=== PATIENT | male | born 1965 | race Caucasian/White ===

== ENCOUNTER 2016-10-12 06:22 | Day surgery (SDC) | payer BC ==
[~2016-10-12 06:22] MED LIST: Dextrose 5%-0.45% NaCl 1,000 ML IV SCH; Midazolam 1 MG/ML 2 ML SDV ONE; Sodium Chloride 0.9% 10 ML Syringe FLUSH PRN; fentaNYL 100 MCG/2 ML SDV ONE
[2016-10-12] MEDS ORDERED: fentaNYL 100 MCG/2 ML SDV IV ONE ×2 (07:36→17:04)
[2016-10-12] MEDS ORDERED: Midazolam 1 MG/ML 2 ML SDV IV ONE ×7 (07:37→17:04)
[2016-10-12 09:44] VITALS: BP 132/85
--- NOTE | 2016-10-12 10:13 | OR ---
DATE: 10/12/2016 PROCEDURE: Total colonoscopy. INSTRUMENT USED: CF-H180AL Olympus video colonoscope. Olympus disposable distal attachment. PREMEDICATIONS: Fentanyl 100 mcg intravenous, Versed 4 mg intravenous. The procedure was done under pulse oximetry, BP recording, and nuclear monitoring technician. INDICATION: Screening colonoscopic examination is done for detection of any polypoid lesions and removal, endoscopic hemostasis therapy if needed. Initial rectal exam was unremarkable. Rigid anoscopy was normal. DESCRIPTION OF PROCEDURE: The colonoscope was passed with ease up to the ileocecal area, photographs were taken of the normal-appearing cecum, identified by landmarks of appendiceal orifice and double-bulged ileocecal folds. No bleeding was noted from any of the visualized areas at the commencement of the examination. No stricture. No vascular ectasia. No large isolated ulcerations seen. No evidence of diffuse inflammatory bowel disease in the form of friability, contact bleeding, or ulcerations. No polyp or tumor mass identified. Probing the proximal sides of folds and flexures, using adequate distention and clearing up the stool material, withdrawal of the scope was made, cecum to rectum time over 6 minutes. No bleeding was noted from any of the visualized areas at the completion of examination. IMPRESSION: Normal study. The patient tolerated the procedure well. [facility] /[id number]
== END 2016-10-12 09:55 | disposition home or self-care (01) ==
LOC: DL.ENDO 06:22
PROVIDERS: ATTEND Internal Medicine Gastroenterology
DX: Z12.11 Encounter for screening for malignant neoplasm of colon (principal); I10 Essential (primary) hypertension; E78.5 Hyperlipidemia, unspecified; K21.9 Gastro-esophageal reflux disease without esophagitis; E66.09 Other obesity due to excess calories; Z79.899 Other long term (current) drug therapy
CPT/HCPCS: 45378; J2250; J3010; J7042

== ENCOUNTER 2016-10-23 03:42 | Emergency (ER) | payer BC ==
[2016-10-23] MEDS ORDERED: Ondansetron 4 MG/2 ML SDV IV ONE (04:04)
[2016-10-23] MEDS ORDERED: HYDROmorphone 1 MG/ML Syringe IVPUSH ONE ×2 (04:04→05:25)
[2016-10-23] MEDS ORDERED: Cyclobenzaprine 10 MG Tab PO ONE (04:25)
[2016-10-23] MEDS ORDERED: Sodium Chloride 0.9% 1,000 ML IV ONE (04:26)
--- NOTE | 2016-10-23 05:30 | EDM.PDOC ---
ED HPI LOWER BACK PAIN/INJURY - General Chief Complaint: Back Pain or Injury Stated Complaint: BACK INJURY Time Seen by Provider: 10/23/16 03:45 Source of Information: Reports: Patient History Limitations: Reports: No limitations - History of Present Illness INITIAL COMMENTS - FREE TEXT/NARRATIVE: c/o severe low back pain, unable to manage pain tonight with ibuprofen. 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 No radiation of pain, no numbness or tingling No bowel or bladder problems. Denies prior back trouble. Location: Reports: lower Quality: Reports: Throbbing Place of Occurrence: other Improves with: Reports: Immobilization Worsens with: Reports: Movement Context: Reports: bending Treatments WARRANT SERVER: Reports: Acetaminophen, NSAIDS - Related Data Allergies/ADRs: Allergies Allergy/AdvReac Type Severity Reaction Status Date / Time lisinopril Allergy Cough Verified 10/23/16 03:52 metoprolol [From Toprol XL] Allergy Lethargy Verified 10/23/16 03:52 Home Meds: Home Meds amLODIPine [Norvasc] 10 mg PO DAILY 10/11/16 [History] Past Medical History - Past Health History Medical/Surgical History: Denies Medical/Surgical History Cardiovascular History: Reports: Hypertension Neurological History: Reports: None Psychiatric History: Reports: None Hematologic History: Reports: None Oncologic (Cancer) History: Reports: None Dermatologic History: Reports: None - Infectious Disease History Infectious Disease History: Reports: Chicken pox, Shingles Social & Family History - Family History Family Medical History: Noncontributory - Tobacco Use Smoking Status *Q: Never Smoker Years of Tobacco use: 6 Used Tobacco, but Quit: Yes Month Tobacco Last Used: 07/02/2006 Second Hand Smoke Exposure: No - Alcohol Use Days Per Week of Alcohol Use: 7 Number of Drinks Per Day: 2 Total Drinks Per Week: 14 - Recreational Drug Use Recreational Drug Use: No Drug Use in Last 12 Months: No ED ROS GENERAL - Review of Systems Review Of Systems: See Below Constitutional: Reports: no symptoms GI/Abdominal: Reports: No symptoms : Reports: no symptoms Musculoskeletal: Reports: back pain Skin: Reports: no symptoms Neurological: Reports: No Symptoms ED EXAM,LOWER BACK PAIN/INJURY - Physical Exam Exam: See Below Exam Limited By: No limitations General Appearance: alert, moderate distress, obese Ears: normal external exam Nose: normal inspection Throat/Mouth: Normal inspection Head: atraumatic Neck: normal inspection Respiratory/Chest: no respiratory distress, lungs clear Cardiovascular: normal peripheral pulses, regular rate, rhythm Back Exam: paraspinal tenderness (bilateral. No SI pain), vertebral tenderness ( low lumbar) Extremities: normal inspection, normal range of motion Neurological: alert, normal dorsiflexion, normal plantar flexion, oriented x 3, straight leg raise (L), straight leg raise (R), difficulty walking (related to pain). No: normal gait, saddle anesthesia Psychiatric: normal affect, normal mood Skin Exam: Warm, Dry, Intact, Normal color Course - Vital Signs Last Recorded V/S: Last Vital Signs Temp 97.6 F 10/23/16 05:55 Pulse 70 10/23/16 05:55 Resp 18 10/23/16 05:55 BP 139/93 H 10/23/16 05:55 Pulse Ox 97 10/23/16 05:55 - Orders/Labs/Meds Meds: Medications Discontinued Medications Generic Name Dose Route Start Last Admin Trade Name Ralph PRN Reason Stop Dose Admin Cyclobenzaprine HCl 10 mg 10/23/16 04:25 10/23/16 04:30 Flexeril PO 10/23/16 04:26 10 mg ONETIME ONE Administration Hydromorphone HCl 1 mg 10/23/16 04:04 10/23/16 04:17 Dilaudid IVPUSH 10/23/16 04:05 1 mg ONETIME ONE Administration Hydromorphone HCl 1 mg 10/23/16 05:25 10/23/16 05:27 Dilaudid IVPUSH 10/23/16 05:26 1 mg ONETIME ONE Administration Sodium Chloride 1,000 mls @ 50 mls/hr 10/23/16 04:26 10/23/16 04:16 Normal Saline IV 10/24/16 00:25 50 mls/hr .BOLUS ONE Administration Ondansetron HCl 4 mg 10/23/16 04:04 10/23/16 04:16 Zofran IV 10/23/16 04:05 4 mg ONETIME ONE Administration Orphenadrine Citrate 60 mg 10/23/16 04:07 Norflex IV 10/23/16 04:08 ONETIME ONE - Radiology Interpretation Free Text/Narrative:: lumbar CT negative - Re-Assessments/Exams Free Text/Narrative Re-Assessment/Exam: 10/25/16 03:55 Pain improved following medication. Findings of CT discussed with patient and . Home, improved with oral medicaiton. Rx written. follow up in clinic, with urgent follwo up if any change in symptoms especially urinry retention or incontinence. Departure - Departure Time of Disposition: 05:29 Disposition: Home, Self-Care 01 Condition: fair Clinical Impression: Lumbar back pain Qualifiers: Chronicity: acute Back pain laterality: midline Sciatica presence: without sciatica Qualified Code(s): M54.5 - Low back pain Instructions: Back Pain, Adult, [id number], Pain Medicine Instructions, Easy- to-Read Referrals: Vicky Burnette MD [Primary Care Provider] - Forms: ED Department Discharge Additional Instructions: percocet 5/325 one every 6 hours as needed for severe pain ibuprofen 600mg every 6 hours as needed for moderate pain ice to low back, may follow with heat miralax one capful daily if using percocet to prevent constipation increase fruit fluid and fiber in diet rest follow up with primary care provider this week Sunday or
[2016-10-23 06:02] VITALS: BP 139/93
== END 2016-10-23 06:00 | disposition home or self-care (01) ==
LOC: DL.ED 03:42
DX: M54.5 Low back pain (principal); I10 Essential (primary) hypertension; Z79.899 Other long term (current) drug therapy; Z88.8 Allergy status to other drugs, medicaments and biological substances; Z87.891 Personal history of nicotine dependence; E66.9 Obesity, unspecified; R26.2 Difficulty in walking, not elsewhere classified
CPT/HCPCS: 72131; 96361; 96374; 96375; 96376; 99283; A9270; J1170; J2405; J7030